=== PATIENT | male | born 1965 | race African-American/Black ===

== ENCOUNTER 2019-01-11 12:56 | Emergency (ER) | payer OTHER ==
[~2019-01-11] VITALS: Ht 170.2 cm; Wt 90.7 kg
[2019-01-11 16:14] VITALS: BP 142/85
== END 2019-01-11 16:24 | disposition home or self-care (01) ==
LOC: ER 12:56
DX: S09.8XXA Other specified injuries of head, initial encounter (principal); S00.81XA Abrasion of other part of head, initial encounter; H11.32 Conjunctival hemorrhage, left eye; H05.222 Edema of left orbit; Y04.0XXA Assault by unarmed brawl or fight, initial encounter; Y93.89 Activity, other specified; Y92.488 Other paved roadways as the place of occurrence of the external cause
CPT/HCPCS: 99283